=== PATIENT | female | born 1965 | race African-American/Black ===

== ENCOUNTER 2016-06-19 21:42 | Emergency (ER) | payer SELFPAY ==
[2016-06-19 21:43] VITALS: BMI 28.8
[2016-06-19 21:48] VITALS: BP 148/70; PULSE 106; TEMP 98
== END 2016-06-19 23:01 | disposition left against medical advice (07) ==
LOC: ED 21:42
DX: Z53.21 Procedure and treatment not carried out due to patient leaving prior to being seen by health care provider (principal)

== ENCOUNTER 2016-06-24 07:32 | Emergency (ER) | payer SELFPAY ==
[2016-06-24 07:53] VITALS: TEMP 98; BMI 29.0
[2016-06-24] MEDS ORDERED: KETOROLAC TROMETH 30 MG/ML VIAL IM ONE (07:58)
[2016-06-24] MEDS ORDERED: DEXAMETHASONE PF 10 MG/1 ML VIAL IM ONE (07:58)
--- NOTE | 2016-06-24 08:16 | EDPRACDOC ---
- General Information Chief Complaint: Generalized Weakness Stated Complaint: BURNING PAIN ALL OVER Time Seen by Provider: 06/24/16 07:47 Information Source: Patient Mode Of Arrival: Car Home Medications: Home Medications Gabapentin 600 mg PO TID 02/17/16 Aripiprazole [Abilify] 2 mg PO DAILY 06/24/16 Buspar Unknown Dose 0 mg PO .SEE COMMENTS 06/24/16 Desvenlafaxine Succinate [Pristiq] 100 mg PO DAILY 06/24/16 Hydrocodone/Acetaminophen [Lortab 5-325 mg Tablet] 1 each PO Q4H PRN #5 tablet 06/24/16 Ketorolac Tromethamine [Toradol] 10 mg PO Q6H PRN #20 tab 06/24/16 Prednisone [Deltasone, Orasone] 1 tabs PO BID #18 tab 06/24/16 Allergies/Adverse Reactions: Allergies Allergy/AdvReac Type Severity Reaction Status Date / Time No Known Allergies Allergy Verified 06/24/16 07:45 - History of Present Illness Onset: all the time Exact Onset of Symptoms: Unknown HPI: PT REPORTS BURNING PAIN ALL OVER BODY. THIS HAS BEEN GOING ON FOR YEARS. SHE WAS GOING TO [place] AND HAD [facility] THERE. PT WAS GIVEN LYRICA AND NEURONTIN AND REPORTS THAT IT DOES NOT HELP. SHE STOPPED THE NEURONTIN B/C IT JUST MADE HER SLEEP. SHE IS OUT OF LYRICA AND HAS NOT GONE BACK FOR RX. PT SAID SHE IS TRYING TO GET DISABILITY B/C SHE CAN'T WORK. THE PT HAS AN APPT WITH THE PAIN CLINIC AT [place] IN AUGUST OR SEPTEMBER. PT SAID THE LAST MONTH HAS BEEN HARD B/C HER 2 NEPHEWS HAVE BEEN KILLED. PT SAID THAT SHE HAS A HX OF DRUG AND ALCOHOL PROBLEMS AND HAS DRANK A FEW BEERS THIS MONTH. 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) Additional Past Medical History: FIBROMYALGIA Surgical History: Reports: Cholecystectomy - Social Medical History Smoking Status: Heavy tobacco smoker (5 or more cigarettes/day or daily pipe/ cigar) ETOH: Social Substance Abuse: Illicit Drugs (CLEAN) Lives In: Home EDM Review of Systems - Review of Systems ROS Negative Except as Marked: Yes All systems reviewed and were negative except as marked Constitutional: Weakness ROS Comments: DIFFUSE PAIN - Physical Exam Constitutional: Alert (Awake), No apparent distress Oriented to: Time, Person, Place Last recorded Vital Signs: Last Vital Signs Temp 98 F 06/24/16 07:46 Pulse 91 06/24/16 07:46 Resp 18 06/24/16 07:46 BP 136/57 L 06/24/16 07:46 Pulse Ox 100 06/24/16 07:46 Oxygen Pulse Oxygen Saturation 100 O2 Device Room Air Oxygen Flow Rate Fraction of Inspired Oxygen ( FIO2) - HEENT Head: Normal ( normocephalic) Eye Exam: Normal (PERRL, EOMI, Sclera white) Oropharynx: Normal (Pharynx:Moist without exudate,Gums-no swelling) ENT EAC: Normal TMJ: Normal Nose: No Symptoms Reported (septum midline) Neck: Normal (FROM, trachea at midline) - Respiratory/Cardiovascular Respiratory: Normal - CTA (BBS clear to auscultation without adventitious sounds ) Cardiovascular: Normal (RRR without murmur, gallop or rub) - GI Auscultation: Normal (NABS) Palpation: Normal (Soft,No rebound or guarding, non distended) Tenderness: Non tender Fox's Sign: Negative - Musculoskeletal Back: Normal (Non-Tender) Extremities: Normal (Normal tone, Pulses 2+ No cyanosis or edema, FROM) - Integumentary Skin: Normal, Warm, Dry Lymphatics: Normal (no adenopathy) - Neurologic Memory Impaired: Normal Motor Function: Normal (Normal tone, Pulses 2+ No cyanosis or edema, FROM) Cranial Nerve: Normal (CN II-X11 intact sensation, strength 5/5) Cerebellar: Normal Mood Description: Normal Perception: Normal Decision Time to Discharge: 08:17 - Departure Yes I personally saw and evaluated the patient. Disposition: Home Condition: Fair Final Diagnosis: ACUTE ON CHRONIC PAIN, Fibromyalgia Instructions: Core Strengthening Exercises (GEN) Education/Counseling Given To: Patient Education/Counseling Given Regarding: Diagnosis, Treatment, Follow Up Referrals: None,No Provider [Primary Care Provider] - One Week Sharan Peralta II, MD [Staff Physician] - One Week Prescriptions: New Hydrocodone/Acetaminophen [Lortab 5-325 mg Tablet] 1 each PO Q4H PRN #5 tablet PRN Reason: Pain Ketorolac Tromethamine [Toradol] 10 mg PO Q6H PRN #20 tab PRN Reason: Pain Prednisone [Deltasone, Orasone] 1 tabs PO BID #18 tab No Action Gabapentin 600 mg PO TID Desvenlafaxine Succinate [Pristiq] 100 mg PO DAILY Aripiprazole [Abilify] 2 mg PO DAILY Buspar Unknown Dose 0 mg PO .SEE COMMENTS Additional Instructions: PCP OR PAIN CLINIC TO TREAT CHRONIC PAIN
[2016-06-24 08:48] VITALS: BP 108/52; PULSE 77
== END 2016-06-24 08:47 | disposition home or self-care (01) ==
LOC: ED 07:32
DX: G89.29 Other chronic pain (principal); M79.7 Fibromyalgia; D46.9 Myelodysplastic syndrome, unspecified; F32.9 Major depressive disorder, single episode, unspecified; F17.200 Nicotine dependence, unspecified, uncomplicated; Z79.899 Other long term (current) drug therapy
CPT/HCPCS: 96372; 99283; J1100; J1885